=== PATIENT | male | born 1995 | race Caucasian/White ===

== ENCOUNTER → 2020-07-24 12:56 | Outpatient (CLI) | payer OTHER, SELFPAY ==
[2020-07-24 14:39] LABS: COVID19 -Nasal RAPID Negative (Negative)
== END ==
PROVIDERS: Visit Provider Surgery
DX: Z01.812 Encounter for preprocedural laboratory examination (principal); Z20.828 Contact with and (suspected) exposure to other viral communicable diseases
CPT/HCPCS: 87635; C9803

== ENCOUNTER 2020-07-25 06:39 | Day surgery (SDC) | payer OTHER, SELFPAY ==
[2020-07-20 10:43] VITALS: BMI 25.8
[2020-07-25] VITALS (7 sets, daily range): BP systolic 90–115; BP diastolic 43–71; PULSE 55–83; RESP 14–28; TEMP 36.2–36.7; O2SAT 93–100; BMI 25.0
--- NOTE | 2020-07-25 | PATH_ITS ---
[facility] Accession Number: [id number] . 01 Material submitted: . breast - LEFT LUMPECTOMY . 02 Diagnosis: Breast, Left Lumpectomy: Gynecomastia. Negative for atypical hyperplasia, in situ, or invasive carcinoma. MRV 07/28/2020 1330 Local . 02 Electronically signed: . Jessenia Liang MD, Pathologist NPI- [id number] . 01 Gross description: . Received in formalin, labeled with the patient's name and left lumpectomy, is a 2.0-gram, 2.5 x 2.0 x 1.3 cm unoriented fragment of yellow-brandt lobulated adipose tissue, outer surface entirely inked black. Sectioning into seven slices reveals yellow and pale brandt fibrofatty cut surface, 50% fatty, 50% fibrous, no distinct mass or lesion identified within, no biopsy clips identified. The specimen is entirely submitted. . Summary of sections: A1-4. Slices #1-7, serially submitted. . No formalin fixation time or time in formalin is identified on the requisition or container. ([id number]) /MRV 07/26/2020 1515 Local . 02 Pathologist provided ICD-10: N62 . 02 CPT . 516062 Performed at: 01 [facility] [address], [place], [place] [id number] MD Madhav Romero MD Phone: [phone] Performed at: 02 [facility] [place] [address] [place], [place] [id number] MD Jessenia Liang MD Phone: [phone]
[2020-07-25] MEDS: ACETAMINOPHEN 325 MG TABLET 975 MG PO (07:13)
[2020-07-25] MEDS: SCOPOLAMINE 1 PATCH TOP (07:13)
[2020-07-25] MEDS: LACTATED RINGERS 1,000 ML 100 ML IV (07:15)
--- NOTE | 2020-07-25 07:25 | SUR.OPER ---
Supine on padded OR bed, head on pillow, arms secured on padded arm boards at <90 degrees abduction, legs uncrossed, safety belt at thigh, tape over blanket over lower legs.
--- NOTE | 2020-07-25 07:40 | P.HP_ITS ---
History of Present Illness History of Present Illness Date Patient Seen: 07/25/20 Time Patient Seen: 07:40 Chief complaint: SDC Narrative: 25 male with symptomatic left gynecomastia. Here today for elective lumpectomy. No interval changes in health. Please refer to H&P May 2020 for further detail. Patient History Family & Social History Social History: household members significant other,friend(s) Tobacco & Substance use: Tobacco type cigarettes Smoking Status Former smoker alcohol intake current alcohol intake frequency a few times a month Substance Use Type does not use Meds Home Medications and Allergies Home Medications Medication Instructions Recorded Confirmed Type amino acids 1 each PO DAILY 06/07/20 07/25/20 History ascorbic acid (vitamin C) 100 mg 1,000 mg PO DAILY 06/07/20 07/25/20 History tablet mecobalamin (vitamin B12) 5,000 1,000 mcg PO DAILY 06/07/20 07/25/20 History mcg lozenge multivitamin 1 tab PO DAILY 06/07/20 07/25/20 History Alexander 3-6-9 1 tab PO DAILY 07/20/20 07/25/20 History biotin 20,000 mcg PO DAILY 07/20/20 07/25/20 History Allergies Allergy/AdvReac Type Severity Reaction Status Date / Time No Known Drug Allergies Allergy Verified 07/25/20 07:10 Review of Systems Review of Systems ROS: Yes All systems reviewed with the patient and are negative except as otherwise documented Exam Vital Signs (past 8 hours): - 07/25/20 07:21 Temperature 98.1 F Pulse Rate 55 L Respiratory Rate 16 Blood Pressure 114/64 Pulse Oximetry 100 Oxygen Delivery Method Room Air Narrative Exam Narrative: General-no acute distress, well nourished adult male HEENT-moist mucous membranes, no scleral icterus Neck-supple, no lymphadenopathy Chest- non labored respirations, clear to auscultation bilaterally Cardiac-regular rate no peripheral edema Abdomen-soft, nontender, non distended Extremities-warm, well perfused Neurological-alert and oriented, no focal deficits Assessment & Plan Assessment & Plan narrative: 25M symptomatic left gynecomastia here for elective left lumpectomy. Operative risks discussed including bleeding, infection, reoccurrence, damage to surrounding structures.
[2020-07-25] MEDS: CEFAZOLIN 2 GM/100 ML FROZ.PIGGY IV (07:53)
[2020-07-25] MEDS: BUPIVACAINE 0.5% (PF) VIAL 30 ML INJ (08:02)
--- NOTE | 2020-07-25 08:24 | PM.OP.1 ---
Operative Date/Time/Diagnoses Date of procedure: 07/25/20 Time of procedure: 08:24 Pre-op diagnosis: gynecomastia Post-op diagnosis: same Procedure & Clinicians Procedure: left lumpectomy Same procedure as scheduled: Yes Indications: 25M with symptomatic left gynecomastia Surgeon: Chema Melgoza Click Yes if Unassisted: Yes Anesthesia Type: General Operative Notes Findings: 2 cm focus of fibrotic tissue retroareolar Specimen(s): other (left lumpectomy) Estimated Blood Loss (mL): 10 Procedure in detail: Patient brought to the operating room placed supine on the table. Bilateral lower extremity compression devices were applied. He received 2 g of Ancef prior to skin incision. General anesthesia was induced she was intubated with an LMA. He was prepped and draped in sterile fashion. Time-out was performed. The skin around the left areolar complex was infiltrated with 0.25% bupivacaine. A curvilinear incision was made areolar complex on the lateral aspect. The subcutaneous tissues were divided. There was a fibrotic focus of tissue retro areolar which was circumferentially dissected out. This was passed off the field labeled as left mastectomy. The remainder of the left breast tissue was soft and smooth. The wound was irrigated with saline and then the subcutaneous tissue was reapproximated with 3-0 Vicryl skin closed with a running for 4-0 Vicryl. The skin was then sealed with Dermabond and a Tegaderm was placed over it. He emerged from anesthesia was extubated transferred to recovery room in stable condition. Complications: none Post-operative Condition: stable Disposition: same day surgery
[2020-07-25] MEDS: OXYCODONE IR 5 MG TABLET PO (08:51)
== END 2020-07-25 09:07 | disposition home or self-care (01) ==
PROVIDERS: Referring Provider Surgery; Visit Provider Surgery
PROC: (CPT 19301; principal; 2020-07-25 07:45)
DX: N62 Hypertrophy of breast (principal)
CPT/HCPCS: 19300; 82962; J0690; J1100; J1885; J2250; J2405; J2704

== ENCOUNTER 2021-11-01 15:53 | Emergency (ER) | payer OTHER, SELFPAY ==
[2021-11-01 15:58] VITALS: BP 130/73; PULSE 83; RESP 16; TEMP 36.7; O2SAT 100; BMI 23.7
--- NOTE | 2021-11-01 17:14 | ED_ITS ---
HPI - GI Bleed <Jessenia Ibarra [facility] - Last Filed: 11/01/21 20:15> General Chief complaint: GI Bleed Stated complaint: blood in stool Time Seen by Provider: 11/01/21 17:05 Source: patient Mode of arrival: Ambulatory History of Present Illness HPI Narrative: 26-year-old male presents to the emergency department complaining of blood in his stool occasionally over the last 3 days. He states that 3 days ago, there was a little larger amount of blood in his stool but over the last 2 days he has hardly had any but it was still present. He denies a history of this in the past, he denies any known GI or colon problems, denies any recent STI exposure, denies any anal receptive intercourse, states that he has a small bulge at his anus, it is non tender, he thinks this is a hemorrhoid. He denies any rectal pain, denies any abnormal discharge, he states that his bladder is U shaped, and he only empties 70% of his bladder when he urinates. He denies any known prostate issues, he states he has had an evaluation from Urology, who states that at baseline he does not empty his bladder. He denies any dysuria, penile drainage, dribbling, abdominal pain, nausea or vomiting. Related Data Home Medications Medication Instructions Recorded Confirmed amino acids 1 each PO DAILY 06/07/20 08/23/20 ascorbic acid (vitamin C) 100 mg 1,000 mg PO DAILY 06/07/20 08/23/20 tablet mecobalamin (vitamin B12) 5,000 1,000 mcg PO DAILY 06/07/20 08/23/20 mcg lozenge multivitamin 1 tab PO DAILY 06/07/20 08/23/20 Dawson 3-6-9 1 tab PO DAILY 07/20/20 08/23/20 biotin 10,000 mcg capsule 20,000 mcg PO DAILY 07/20/20 08/23/20 Previous Rx's Medication Instructions Recorded acetaminophen 325 mg capsule 650 mg PO QID PRN #60 cap 07/25/20 (Tylenol) ibuprofen 200 mg capsule 200 mg PO Q6H PRN #60 cap 07/25/20 oxycodone 5 mg tablet 5 mg PO Q8H PRN #20 tab 07/25/20 docusate sodium 100 mg capsule 100 mg PO DAILY 14 Days #14 cap 11/01/21 Allergies Allergy/AdvReac Type Severity Reaction Status Date / Time No Known Drug Allergies Allergy Verified 08/23/20 13:54 Review of Systems <PLACIDO Jones - Last Filed: 11/01/21 20:15> Review of Systems Narrative: General: denies fever, chills, malaise, sweats, fatigue Head/Neck: denies headache, neck pain, dizziness Eyes: denies visual changes, eye pain Cardio: denies chest pain, palpitations, edema Respiratory: denies dyspnea, cough, orthopnea GI: denies abdominal pain, nausea, vomiting, or diarrhea, states his bowel movements have been formed, not loose or hard with blood streaks : denies dysuria, hematuria, states urinary retention is at baseline, denies any urinary frequency or incontinence MSK: denies joint pain, muscle weakness Skin: denies rash, itching, skin lesions or other Neuro: denies numbness, tingling Patient History <PLACIDO Jones - Last Filed: 11/01/21 20:15> Social History marital status: unmarried,living together household members: significant other and friend(s) occupational status: employed Smoking Status: Current every day smoker alcohol intake: current substance use type: does not use Smoking Status: Current every day smoker tobacco type: vaping alcohol intake frequency: a few times a month Substance Use Type: does not use Exam <PLACIDO Jones - Last Filed: 11/01/21 20:15> Narrative Exam Narrative: Independently reviewed vitals signs and nursing notes. General: cooperative, comfortable, in no acute distress, well developed and well groomed Head: atraumatic, symmetrical facial expressions Neck: supple, atraumatic, without lymphadenopathy. Eyes: pupils equal round and reactive, EOMI, conjunctiva normal Nose: nares patent, no rhinorrhea Mouth/Throat: uvula midline, moist mucus membranes Cardiovascular: regular rate and rhythm, no peripheral edema, warm extremities Respiratory: normal effort, able to speak in complete sentences, no audible wheezing, stridor, or rales. No retractions or tachypnea. GI: abdomen soft, nontender to palpation, nondistended, no masses, no exquisite tenderness with exam, without guarding or rebound., external hemorrhoid is present, approximately 1 cm in diameter, no open wound or discharge MSK: moves all extremities, ambulatory w/steady gait, neurovascularly intact, no weakness Skin: brisk capillary refill, no rash, no erythema Neuro: normal speech and cognition, A&O x3, normal tone Psych: mental status is grossly normal, congruent mood, normal affect, pleasant and cooperative Initial Vital Signs Initial Vital Signs: Vital Signs Temperature 98.1 F 11/01/21 15:58 Pulse Rate 83 11/01/21 15:58 Respiratory Rate 16 11/01/21 15:58 Blood Pressure 130/73 11/01/21 15:58 Pulse Oximetry 100 11/01/21 15:58 <Galina Turner DO - Last Filed: 11/10/21 08:49> Initial Vital Signs Initial Vital Signs: Vital Signs Temperature 98.1 F 11/01/21 15:58 Pulse Rate 83 11/01/21 15:58 Respiratory Rate 16 11/01/21 15:58 Blood Pressure 130/73 11/01/21 15:58 Pulse Oximetry 100 11/01/21 15:58 Course <PLACIDO Jones - Last Filed: 11/01/21 20:15> Orders Ordered: ED Orders 11/01/21 17:25 UA Complete [Urinalysis and Microscopic] Stat Vital Signs Vital signs: Vital Signs - 8 hr 11/01/21 15:58 11/01/21 17:15 Temperature 98.1 F Pulse Rate 83 67 Respiratory Rate 16 18 Blood Pressure 130/73 130/70 Pulse Oximetry 100 98 <Galina Turner DO - Last Filed: 11/10/21 08:49> Orders Ordered: ED Orders 11/01/21 17:25 UA Complete [Urinalysis and Microscopic] Stat Vital Signs Vital signs: Vital Signs - 8 hr 11/01/21 15:58 11/01/21 17:15 Temperature 98.1 F Pulse Rate 83 67 Respiratory Rate 16 18 Blood Pressure 130/73 130/70 Pulse Oximetry 100 98 MDM - GI Bleed <PLACIDO Jones - Last Filed: 11/01/21 20:15> Lab Data Labs: Lab Results 11/01/21 Range/Units 17:25 Urine Color Yellow Urine Appearance Clear Urine pH 7.0 (4.5-8.0) Ur Specific [place] 1.010 (1.000-1.035) Urine Protein Negative (Negative) Urine Glucose (UA) Negative (Negative) g/dL Urine Ketones Negative (NEGATIVE) Urine Occult Blood Negative (Negative) Urine Nitrate Negative (Negative) Urine Bilirubin Negative (NEGATIVE) Urine Urobilinogen 0.2 (0.2) E.U./dL Ur Leukocyte Esterase Negative (NEGATIVE) Urine RBC None seen (0-5/HPF) Urine WBC 0-1/hpf (0-5/HPF) Ur Squamous Epith Cells 0-1 /hpf (0-5/HPF) Urine Bacteria None seen (None) Ur Culture Indicated? Cult not indicated MDM Narrative Medical decision making narrative: 26-year-old male presents to the emergency department complaining of bright red blood in his stool for the last 3 days but worse on the 1st day only small streaks in the last 2 days. Patient was found to have 1 external hemorrhoid approximately 1 cm in diameter, nontender to palpation, no discharge or bleeding currently. Patient was given a prescription for topical hydrocortisone and Anusol. Discussed he have close follow-up with his primary care provider for a colonoscopy if he continues to have blood in his stool. He may also have IBS or colitis. Patient understands [place] including possible colonoscopy if this is ongoing. Patient was given strict return precautions to the emergency department, he has not had any vomiting, denies any current abdominal pain, denies any rectal pain. Denies any urinary symptoms as well. UA was normal without any abnormal results. Patient is appropriate and amenable to discharge home. Vital signs are stable on repeat examination is unremarkable. Patient has been informed of results. Patient has been given strict return to ER precautions for any new or worsening symptoms. Patient understands to follow up closely with outpatient providers as instructed. Patient understands plan and agrees to discharge home. All questions and concerns answered at this time. <Galina Turner DO - Last Filed: 11/10/21 08:49> Lab Data Labs: Lab Results 11/01/21 Range/Units 17:25 Urine Color Yellow Urine Appearance Clear Urine pH 7.0 (4.5-8.0) Ur Specific [place] 1.010 (1.000-1.035) Urine Protein Negative (Negative) Urine Glucose (UA) Negative (Negative) g/dL Urine Ketones Negative (NEGATIVE) Urine Occult Blood Negative (Negative) Urine Nitrate Negative (Negative) Urine Bilirubin Negative (NEGATIVE) Urine Urobilinogen 0.2 (0.2) E.U./dL Ur Leukocyte Esterase Negative (NEGATIVE) Urine RBC None seen (0-5/HPF) Urine WBC 0-1/hpf (0-5/HPF) Ur Squamous Epith Cells 0-1 /hpf (0-5/HPF) Urine Bacteria None seen (None) Ur Culture Indicated? Cult not indicated Discharge Plan Departure Patient Disposition: Home Clinical Impression: Hemorrhoids Qualifiers: Hemorrhoid type: unspecified Qualified Code(s): K64.9 - Unspecified hemorrhoids Instructions: DI for Hemorrhoids, DI for Colitis Activity Restrictions/Additional Instructions: *You have been diagnosed with an external hemorrhoid which appears to be partially internal. Please apply the topical cream to the external part and use a suppository each day for the next week, please do not use any hydrocortisone cream or suppositories for over 1 week due to mucosal thinning. You may take the docusate sodium for stool softening, it will help decrease draining and pain while defecating. You may also apply Vaseline if that is helpful. Please follow-up with your primary care provider to see if this resolves or if you continue having blood in your stool, it would be good to have a colonoscopy. There are other therapies available if this is unsuccessful for your hemorrhoid. You for trusting us with your care, I hope it feels better soon. *What to do: *Please continue to take your regular medications as directed. [ x] New medication prescriptions sent to your pharmacy: [[facility] pharmacy ] [ ] New medication written as a paper prescription [ ] No new medications given *Please follow up with your primary care provider in 2-3 days, call for an appointment. Let them know you were seen in the Emergency Department and that we asked that you be seen for follow-up. We will electronically transmit a record of today's note if your PCP is in our system *If you do not have a primary care provider please contact [phone] to establish care with one of the [facility] primary care providers. *Return to Emergency Department if you should have any new, worsening or concerning symptoms, such as [fever greater than 101F, chills, worsening pain, persistent vomiting or other bothersome symptoms] Prescriptions: New docusate sodium 100 mg capsule 100 mg PO DAILY 14 Days Qty: 14 0RF No Action ibuprofen 200 mg capsule 200 mg PO Q6H PRN (Reason: pain) Qty: 60 0RF acetaminophen [Tylenol] 325 mg capsule 650 mg PO QID PRN (Reason: pain) Qty: 60 0RF oxycodone 5 mg tablet 5 mg PO Q8H PRN (Reason: pain) Qty: 20 0RF multivitamin Tablet 1 tab PO DAILY 0RF ascorbic acid (vitamin C) 100 mg tablet 1,000 mg PO DAILY 0RF amino acids Powder 1 each PO DAILY 0RF mecobalamin (vitamin B12) 5,000 mcg lozenge 1,000 mcg PO DAILY 0RF Rx Instructions: allow to dissolve in mouth OR may chew lightly before swallowing Dawson 3-6-9 1 tab PO DAILY 0RF Rx Instructions: [phone] tab biotin 10,000 mcg Capsule 20,000 mcg PO DAILY 0RF <Galina Turner DO - Last Filed: 11/10/21 08:49> Cosign ED Attending Cosharjinderature Attestation: I was immediately available in the department for consultation. Documentation has been reviewed.
[2021-11-01 17:15] VITALS: BP 130/70; PULSE 67; RESP 18; O2SAT 98
[2021-11-01 17:32] LABS: Appearance Urine UA CLEAR; Bilirubin Urine UA NEGATIVE (NEGATIVE); Color Urine UA YELLOW; Glucose Urine UA NEGATIVE (Negative); Ketones Urine UA NEGATIVE (NEGATIVE); Leukocyte Esterase Urine UA NEGATIVE (NEGATIVE); Nitrite Urine UA NEGATIVE (Negative); Occult Blood Urine UA NEGATIVE (Negative); Protein Urine UA NEGATIVE (Negative); Urobilinogen Urine UA 0.2 E.U./dL (0.2)
[2021-11-01 17:38] LABS: Bacteria Urine None Seen; Culture Indicated Urine Cult Not Indicated; RBC Urine None Seen (0-5/HPF); Squamous Epithelial Cell Urine 0-1 /HPF (0-5/HPF); WBC Urine 0-1/HPF (0-5/HPF)
== END 2021-11-01 17:32 | disposition home or self-care (01) ==
PROVIDERS: Emergency Provider Nurse Practitioner Critical Care Medicine
DX: K64.4 Residual hemorrhoidal skin tags (principal); F17.290 Nicotine dependence, other tobacco product, uncomplicated
CPT/HCPCS: 81001; 99282

== ENCOUNTER 2022-03-03 01:32 | Emergency (ER) | payer OTHER, SELFPAY ==
--- NOTE | 2022-03-03 01:41 | ED.URI ---
HPI - URI/Sore Throat General Chief Complaint: Upper Respiratory Symptoms Stated Complaint: COVID POS. /SORE THROAT Time Seen by Provider: 03/03/22 01:36 History of Present Illness HPI Narrative: 26-year-old male smoker presents with a chief complaint of sore throat, fever and body aches. He has been having symptoms for much of the week and had a test on for COVID which was resulted as positive on Friday. He has had some dry and hacking cough but has no significant shortness of breath. He is nauseated but denies any vomiting. His primary complaint is of sore throat and difficulty swallowing. He was vaccinated against COVID but does not have any boosters. He spoke with his sister that is a nurse who encouraged him to come in to get antibiotics. Related Data Home Medications Medication Instructions Recorded Confirmed amino acids 1 each PO DAILY 06/07/20 08/23/20 ascorbic acid (vitamin C) 100 mg 1,000 mg PO DAILY 06/07/20 08/23/20 tablet mecobalamin (vitamin B12) 5,000 1,000 mcg PO DAILY 06/07/20 08/23/20 mcg lozenge multivitamin 1 tab PO DAILY 06/07/20 08/23/20 [place] 3-6-9 1 tab PO DAILY 07/20/20 08/23/20 biotin 10,000 mcg capsule 20,000 mcg PO DAILY 07/20/20 08/23/20 Previous Rx's Medication Instructions Recorded acetaminophen 325 mg capsule 650 mg PO QID PRN pain #60 caps 07/25/20 (Tylenol) ibuprofen 200 mg capsule 200 mg PO Q6H PRN pain #60 caps 07/25/20 oxycodone 5 mg tablet 5 mg PO Q8H PRN pain #20 tabs 07/25/20 Allergies Allergy/AdvReac Type Severity Reaction Status Date / Time No Known Drug Allergies Allergy Verified 08/23/20 13:54 Review of Systems Review of Systems Narrative: GENERAL: See HPI. HEENT: See HPI RESPIRATORY: See HPI CARDIOVASCULAR: Denies chest pain, palpitations, orthopnea, edema, GASTROINTESTINAL: D see HPI : Denies dysuria, frequency, incontinence, hematuria, urinary retention. MUSCULOSKELETAL: denies weakness, joint pain, or bony pain SKIN: Denies rash, skin lesions, or other NEUROLOGIC: Denies weakness, headache, numbness, change in speech, confusion, seizures, incoordination. PSYCHIATRIC: No concerning psychosocial issues. 12 point review of systems is negative except for those stated above Patient History Social History marital status: unmarried,living together household members: significant other and friend(s) occupational status: employed Smoking Status: Current every day smoker alcohol intake: current substance use type: does not use Smoking Status: Current every day smoker tobacco type: vaping alcohol intake frequency: a few times a month Substance Use Type: does not use Exam Narrative Exam Narrative: GENERAL: [26] year old patient appears stated age. Well-developed patient, in mild distress. HEAD: Atraumatic. Normocephalic. EYES: Pupils equal round and reactive. Extraocular motions intact. No scleral icterus. No injection or drainage. ENT: Nose without bleeding, purulent drainage. Throat without erythema, tonsillar hypertrophy or exudate. Airway patent. Mild amount of postnasal drainage NECK: Trachea midline. Non tender CARDIOVASCULAR: Regular rate and rhythm without murmurs, gallops, or rubs. RESPIRATORY: Clear to auscultation. Breath sounds equal bilaterally. No wheezes, rales, or rhonchi. No respiratory distress, no hypoxemia, use of accessory muscles GASTROINTESTINAL: Abdomen soft, non-tender, nondistended. EXTREMITIES: No edema or joint tenderness. BACK: Nontender without deformity or crepitance. No flank tenderness. NEURO: AOx3. SKIN: No rash or erythema of visible areas Initial Vital Signs Initial Vital Signs: Vital Signs Temperature 99.8 F H 03/03/22 01:44 Pulse Rate 96 H 03/03/22 01:44 Respiratory Rate 19 03/03/22 01:44 Blood Pressure 141/75 H 03/03/22 01:44 Pulse Oximetry 100 03/03/22 01:44 Oxygen Delivery Method 03/03/22 01:44 Course Orders Ordered: Discontinued Medications Ketorolac Tromethamine (Ketorolac 30 Mg/Ml Vial) 30 mg IM NOW ONE Stop: 03/03/22 01:52 Last Admin: 03/03/22 01:56 Dose: 30 mg Documented By: EB Vital Signs Vital signs: Vital Signs - 8 hr 03/03/22 01:44 Temperature 99.8 F H Pulse Rate 96 H Respiratory Rate 19 Blood Pressure 141/75 H Pulse Oximetry 100 Oxygen Delivery Method Room Air MDM - URI/Sore Throat Lab Data Labs: Point of Care Testing Rapid Strep A Negative MDM Narrative Medical decision making narrative: Patient with reassuring history and physical exam, recent diagnosis of COVID, no respiratory distress or abnormal vitals. Clinical exam with low suspicion for strep, rapid strep obtained and negative. No indications for further workup, reassurance given, return precautions discussed and questions answered to his apparent satisfaction Discharge Plan Departure Patient Disposition: Home Clinical Impression: COVID-19 Instructions: DI for COVID-19 (Suspected or Confirmed ) Activity Restrictions/Additional Instructions: *You have been diagnosed with [ COVID-19] *What to do: ?* per recommendations from the CDC and the [facility] Department of Health ?* stay home except to get medical care. ?Restrict activities outside your home, except for getting medical care. ?Do not go to work, school, or public areas. ?Avoid using public transportation, ride sharing, or taxis. ?* separate yourself from other people in your home. ?* call ahead before visiting your doctor ?* Wear a facemask ?* Cover your coughs and sneezes ?* Clean your hands often ?* Avoid sharing household items ?* Clean all high-touch services every day ?* Monitor your symptoms and seek prompt medical attention if your illness is worsening, particularly with difficulty in breathing. You may discontinue your isolation when: ?1. You have been fever-free for at least 24 hours without the use of fever reducing medication, AND ?2. Your symptoms are getting better, AND ?3. At least 5 days have passed since symptoms first appeared ?4. If you have fever, continue to stay home until fever resolves Individuals with laboratory confirmed COVID-19 who have not had any symptoms may discontinue home isolation when at least 5 days have passed since the date of their first COVID-19 diagnostic test and have had no subsequent illness You should notifiy any friends and family that have been in close contact *If up to date on COVID Vaccines, then they do not need to quarantine unless symptoms develop. Get tested on day 5 (or sooner if symptoms develop). Take precautions and watch for symptoms until day 10 *If NOT up to date on COVID Vaccines, then CDC recommends quarantine for at least 5 full days. Wear a well fitted mask at home if you must be around others. If they ?develop symptoms they should get tested. If they remain asymptomatic they should get tested on day 5. They should take precautions and monitor for symptoms until day 10. Prescriptions: No Action ibuprofen 200 mg capsule 200 mg PO Q6H PRN (Reason: pain) Qty: 60 0RF acetaminophen [Tylenol] 325 mg capsule 650 mg PO QID PRN (Reason: pain) Qty: 60 0RF oxycodone 5 mg tablet 5 mg PO Q8H PRN (Reason: pain) Qty: 20 0RF multivitamin Tablet 1 tab PO DAILY ascorbic acid (vitamin C) 100 mg tablet 1,000 mg PO DAILY amino acids Powder 1 each PO DAILY mecobalamin (vitamin B12) 5,000 mcg lozenge 1,000 mcg PO DAILY Rx Instructions: allow to dissolve in mouth OR may chew lightly before swallowing [place] 3-6-9 1 tab PO DAILY Rx Instructions: [phone] tab biotin 10,000 mcg Capsule 20,000 mcg PO DAILY Visit Report Forms: Patient Portal/API
[2022-03-03 01:44] VITALS: BP 141/75; PULSE 96; RESP 19; TEMP 37.7; O2SAT 100; BMI 23.5
[2022-03-03] MEDS: KETOROLAC 30 MG/ML VIAL IM (01:56)
== END 2022-03-03 02:09 | disposition home or self-care (01) ==
PROVIDERS: Emergency Provider Emergency Medicine
DX: U07.1 COVID-19 (principal)
CPT/HCPCS: 87880; 96372; 99283; J1885

== ENCOUNTER 2023-07-07 12:48 | Day surgery (SDC) | payer OTHER, SELFPAY ==
[2023-07-07] MEDS: LACTATED RINGERS 1,000 ML 42 ML IV (13:08)
[2023-07-07 13:16] VITALS: BMI 25.2
[2023-07-07 13:21] VITALS: BP 121/74; PULSE 69; RESP 17; TEMP 36.5; O2SAT 99
--- NOTE | 2023-07-07 13:58 | P.HP_ITS ---
History of Present Illness History of Present Illness Date Patient Seen: 07/07/23 Time Patient Seen: 13:59 Chief complaint: Colonoscopy Narrative: I reviewed the recent note by Gary Zimmer. No significant changes. [facility] Social History marital status: unmarried,living together household members: significant other occupational status: employed Smoking Status: Former smoker alcohol intake: current substance use type: does not use Meds Home Medications and Allergies Home Medications Medication Instructions Recorded Confirmed Type mecobalamin (vitamin B12) 5,000 1,000 mcg PO DAILY 06/07/20 07/07/23 History mcg lozenge multivitamin 1 tab PO DAILY 06/07/20 07/07/23 History [place] 3-6-9 1 tab PO DAILY 07/20/20 07/07/23 History biotin 10,000 mcg capsule 20,000 mcg PO DAILY 07/20/20 07/07/23 History acetaminophen 325 mg capsule 650 mg (2 x 325 mg) PO QID PRN 07/25/20 07/07/23 Rx (Tylenol) pain #60 caps ibuprofen 200 mg capsule 200 mg PO Q6H PRN pain #60 caps 07/25/20 07/07/23 Rx oxycodone 5 mg tablet 5 mg PO Q8H PRN pain #20 tabs 07/25/20 08/23/20 Rx Allergies Allergy/AdvReac Type Severity Reaction Status Date / Time No Known Drug Allergies Allergy Verified 08/23/20 13:54 Review of Systems Review of Systems ROS: Yes All systems reviewed with the patient and are negative except as otherwise documented Exam Vital Signs (past 8 hours): - 07/07/23 13:21 Temperature 97.7 F Pulse Rate 69 Respiratory Rate 17 Blood Pressure 121/74 Pulse Oximetry 99 Oxygen Delivery Method Room Air Oxygen Delivery Method Room Air Const General: cooperative HENMT Head: normal to inspection Eyes General: appearance normal, both eyes and all related structures Neck Neck: normal visual inspection Chest Chest: normal inspection of the chest Resp Effort & Inspection: normal respiratory effort Cardio Rate: regular rate GI Inspection: normal to inspection Skin General: no rashes or lesions noted Neuro General: patient alert and patient awake Extrem General: normal to inspection and no pedal edema Psych Appearance: grossly normal Assessment & Plan Assessment & Plan narrative: 28-year-old male with intermittent rectal bleeding over the last couple of years associated with troubles related to constipation. Diagnostic colonoscopy is pursued today.
--- NOTE | 2023-07-07 14:00 | PM.PREOP ---
Pre-operative Note Interval Note History & Physical reviewed/Exam performed by Physician: Yes Changes to H&P: No ASA Class (for procedural sedation): I
--- NOTE | 2023-07-07 14:24 | PM.OP.COLON ---
Operative Date/Time/Diagnoses Date of procedure: 07/07/23 Time of procedure: 14:24 Pre-op diagnosis: Rectal bleeding and constipation Post-op diagnosis: same Procedure & Clinicians Study performed: Colonoscopy Same procedure as scheduled: Yes Indications: Rectal bleeding and constipation Surgeon: Chivo Trimble Procedure Notes SCOAP/Timeout: Done Procedure in detail: After the risks and benefits were explained, written and verbal informed consent was obtained. The patient was brought into the procedure room and placed into the left lateral decubitus position. Please see anesthesia notes for sedation details. Digital rectal examination was accomplished. The scope was introduced into the patient and advanced under direct visualization to the cecum as identified by the appendiceal orifice and ileocecal valve. The scope was slowly withdrawn to carefully examine the mucosa for any defects or lesions. Comprehensive imaging was accomplished throughout the rectum including the dentate line. The colon was decompressed, the scope was then removed from the patient who tolerated the procedure well. Pediatric colonoscope Bowel prep adequate Scope withdrawal time: 9 minutes Sedation minutes: 17 Specimen(s): none sent Complications: none Impression: The patient had a fairly tortuous colon. No evidence of proctitis. No evidence of macroscopic colitis although there were a few scattered subtle erosions noted in and around the appendiceal orifice of uncertain clinical significance. The terminal ileum was interrogated and appeared visually normal. The patient had grade 2 internal hemorrhoids. Endoscopic diagnosis 1. Grade 2 hemorrhoids 2. Tortuous colon 3. Otherwise visually unremarkable exam Post-procedure Plan for aftercare: 1. Daily to twice daily tiuo-zfs-fapxyiz fiber supplementation is recommended for soft easy to evacuate stools. 2. Intermittent warm Epsom salt baths to reduce hemorrhoidal engorgement. 3. As needed [id number] preparation H ?cooling gel?; this can be applied by way of a gloved index finger following the cleanup post bowel movement if there is any element of hemorrhoidal bulging or protrusion to gently reinsert hemorrhoidal cushions back up inside the anal canal. Disposition: PACU
[2023-07-07 14:26] VITALS: BP 100/57; PULSE 67; RESP 16; TEMP 36.7; O2SAT 99
[2023-07-07 14:31] VITALS: BP 110/65; PULSE 69; RESP 12; O2SAT 100
[2023-07-07 14:36] VITALS: BP 106/72; PULSE 68; RESP 12; O2SAT 100
[2023-07-07 14:38] VITALS: BP 114/76; PULSE 68; RESP 16; TEMP 36.2; O2SAT 100
== END 2023-07-07 14:55 | disposition home or self-care (01) ==
PROVIDERS: Referring Provider Internal Medicine Gastroenterology; Visit Provider Internal Medicine Gastroenterology
PROC: 0DJD8ZZ Inspection of Lower Intestinal Tract, Via Natural or Artificial Opening Endoscopic (ICD-10-PCS; CPT 45378; principal; 2023-07-07 14:00)
DX: K62.5 Hemorrhage of anus and rectum (principal); K59.00 Constipation, unspecified; K64.1 Second degree hemorrhoids
CPT/HCPCS: 45378; J2704

== ENCOUNTER 2025-02-02 13:33 | Day surgery (SDC) | payer OTHER, SELFPAY ==
--- NOTE | 2025-02-02 | PATH_ITS ---
[facility] Accession Number: [id number] No. of containers..01 Tissue . 01 Material submitted: . stomach - STOMACH . 01 Clinical history: . R/O H.PYLORI . 01 Diagnosis: STOMACH, BIOPSY: Gastric antral and body mucosa with mild chronic inflammation. Negative for Helicobacter organisms by immunohistochemistry. Negative for intestinal metaplasia. Negative for dysplasia or malignancy. MRV 02/10/2025 1158 Local . 01 Electronically signed: . Sahil Phillips MD, PhD, Pathologist NPI- [id number] . 01 Gross description: . Received in formalin with two identifiers and stomach, are three brandt soft tissue fragments 0.3 to 0.6 cm in greatest dimension. Submitted in cassette A1. ([id number]) /GENESIS 02/06/2025 0548 Local . 01 Microscopic: . An immunohistochemical stain was performed to evaluate for Helicobacter organisms and is negative. The control stain showed appropriate reactivity. . * This test was developed and the performance characteristics were validated by [facility]. It has not been cleared or approved by the U.S. Food and Drug Administration. . 01 Pathologist provided ICD-10: K29.70 . 01 CPT . 246643, [id number] Performed at: [address] [facility], [place], [place] [id number] MD Madhav Romero MD Phone: [phone]
[2025-02-02 14:24] VITALS: BP 125/71; PULSE 76; RESP 16; TEMP 36.3; O2SAT 99
--- NOTE | 2025-02-02 14:38 | PM.HP.IH.1 ---
History of Present Illness History of Present Illness Date Patient Seen: 02/02/25 Chief complaint: EGD Narrative: Hematemesis [facility] Social History marital status: unmarried,living together household members: significant other occupational status: employed alcohol intake: current substance use type: does not use Meds Home Medications and Allergies Home Medications ?Medication ?Instructions ?Recorded ?Confirmed ?Type multivitamin 1 tab PO DAILY 06/07/20 02/02/25 History omeprazole 20 mg capsule,delayed 20 mg PO DAILY 02/02/25 02/02/25 History release ondansetron HCl 4 mg tablet 4 mg PO Q8H PRN nausea/vomiting 02/02/25 02/02/25 History Allergies Allergy/AdvReac Type Severity Reaction Status Date / Time No Known Drug Allergies Allergy Verified 02/02/25 14:20 Exam Vital Signs (past 8 hours): - 02/02/25 14:24 Temperature 97.4 F L Pulse Rate 76 Respiratory Rate 16 Blood Pressure 125/71 Pulse Oximetry 99 Oxygen Delivery Method Room Air Oxygen Delivery Method Room Air Narrative Exam Narrative: Oropharynx free of lesion Assessment & Plan Assessment & Plan narrative: History of hematemesis at the end of a bout of vomiting. Rule out peptic disease rule out esophagitis rule out Leny-Saldana tear Risks benefits and alternatives have been explained. Time-Based Coding :: [TOTAL MINUTES] spent with patient and on the chart (including review of chart, obtaining history, exam, reviewing outside data, placing orders, documenting exam and treatment plan, and counseling patient) on [DATE]. [employer] Document charge(s): No
--- NOTE | 2025-02-02 14:40 | PM.OP.EGD ---
Operative Date/Time/Diagnoses Date of procedure: 02/02/25 Time of procedure: 14:40 Pre-op diagnosis: See indication and findings Post-op diagnosis: same Procedure & Clinicians Study performed: EGD Same procedure(s) as scheduled: Yes Surgeon: Ginny Bond Procedure Notes Procedure in detail: After informed consent was obtained the patient was placed left lateral decubitus position. The video upper scope was placed into the oropharynx and with the patient's help swallowed into the esophagus. The esophagus stomach duodenal were carefully examined. On withdrawal, retroflexed view the GE junction was performed. The scope was removed. The patient tolerated the procedure well. Blood loss none Complications none Sedation mac Findings 1. Normal esophagus. Careful inspection was taken for quite some time. 2. Retained food in the fundus-moderate biopsies taken in the stomach to rule out Helicobacter 3. Otherwise normal duodenal bulb and sweep I think it is quite likely that seen has had a viral syndrome that cause poor gastric emptying and nausea and vomiting. His GI bleeding symptoms certainly sound consistent with a Leny-Saldana tear which also can heal up quite quickly and seems to have done so. I would have him stay on his omeprazole for the next week 10 days while he slowly recovers. We will be in touch regarding the biopsies
[2025-02-02] MEDS: ONDANSETRON 4 MG/2 ML INJ IV (14:44)
[2025-02-02 15:05] VITALS: BP 118/61; PULSE 77; RESP 15; TEMP 36.4; O2SAT 97
[2025-02-02 15:13] VITALS: BP 117/66; PULSE 76; RESP 18; TEMP 36.4; O2SAT 98
[2025-02-02 15:30] VITALS: BP 119/70; PULSE 65; RESP 15; TEMP 36.3; O2SAT 99
== END 2025-02-02 15:36 | disposition home or self-care (01) ==
PROVIDERS: Referring Provider Internal Medicine Gastroenterology; Visit Provider Internal Medicine Gastroenterology
PROC: 0DJ08ZZ Inspection of Upper Intestinal Tract, Via Natural or Artificial Opening Endoscopic (ICD-10-PCS; CPT 43239; principal; 2025-02-02 13:30)
DX: K92.0 Hematemesis (principal); K29.50 Unspecified chronic gastritis without bleeding; F17.290 Nicotine dependence, other tobacco product, uncomplicated
CPT/HCPCS: 43239; J2405; J2704